=== PATIENT | female | born 1970 | race African-American/Black ===

== ENCOUNTER 2021-07-07 14:28 | Emergency (ER) | payer OTHER ==
[~2021-07-07] VITALS: Ht 162.6 cm; Wt 136.1 kg
[2021-07-07 19:04] LABS: BASOPHILS % 0.3 % (0.0-2.0); HEMATOCRIT. 42.6 % (36.0-48.0); HEMOGLOBIN. 13.6 g/dL (12.0-16.0); LYMPHOCYTES % 23.8 % (20.0-50.0); MEAN CORPUSCULAR HEMOGLOBIN 22.8 pg (28.0-32.0); MEAN CORPUSCULAR VOLUME 71.3 fL (81.0-99.0); MONOCYTES % 8.1 % (2.0-8.0); NEUTROPHILS % 67.8 % (40.0-76.0); PLATELET 188 x1000/uL (130-400); RED BLOOD CELL COUNT 5.97 mill/uL (4.2-5.4); RED CELL DISTRIBUTION WIDTH 17.4 % (11.6-14.6)
[2021-07-07 19:09] LABS: CHLORIDE 102 mEq/L (98-107)
[2021-07-07 19:37] LABS: HCG SCREEN NEGATIVE
[2021-07-07 20:22] VITALS: BP 139/95
[2021-07-07] MEDS ORDERED: SODIUM CHLORIDE 0.9% 1,000 ML IV ONE (22:45)
[2021-07-08] MEDS ORDERED: IOHEXOL-300 100 ML BOTTLE ONE (00:24)
== END 2021-07-08 01:43 | disposition home or self-care (01) ==
LOC: ER 14:37
DX: R10.9 Unspecified abdominal pain (principal); K92.1 Melena; Z20.822 Contact with and (suspected) exposure to COVID-19; E11.65 Type 2 diabetes mellitus with hyperglycemia; R31.0 Gross hematuria; R14.0 Abdominal distension (gaseous); N39.41 Urge incontinence; I10 Essential (primary) hypertension; Z79.4 Long term (current) use of insulin
CPT/HCPCS: 36415; 74177; 80053; 83605; 83690; 84703; 85025; 99285; J7030; Q9967